=== PATIENT | male | born 1990 | race Two or more races ===

== ENCOUNTER 2016-12-03 17:40 | Emergency (ER) | payer MEDICAID ==
[~2016-12-03] VITALS: Ht 177.8 cm; Wt 63.8 kg
[~2016-12-03 17:40] MED LIST: CEPH-368 PO; IBUP-1222 PO; OXYC10TA6 PO; OXYC5TAB2 PO
[2016-12-03 17:44] VITALS: BP 117/60
== END 2016-12-03 18:55 | disposition left against medical advice (07) ==
LOC: ED 18:46
DX: M96.840 Postprocedural hematoma of a musculoskeletal structure following a musculoskeletal system procedure (principal)
CPT/HCPCS: 99282